=== PATIENT | female | born 1950 | race Caucasian/White ===

== ENCOUNTER 2019-12-28 14:18 | Inpatient (IN) | payer OTHER, SELFPAY ==
[~2019-12-28] VITALS: Ht 154.9 cm; Wt 112.5 kg
[2019-12-28 14:30] VITALS: BP 128/46
--- NOTE | 2019-12-28 14:30 | NUR ---
69 Y/O F [facility] C/C ABNORMAL LIFE. PER EMS H/H LOW. NO OTHER COMPLAINTS NOTED. PT PRESENTS IN NO DISTRESS, EUPNIC, VSS, AFEBRILE. PT HARD OF HEARING, A/OX4, COMMUNICATES THROUGH WRITING. PT TESTED 12/10/19 FOR COVID, NEGATIVE. PT NKA. HX,RX--SEE CHART
[2019-12-28 15:21] LABS: BASOPHILS # (AUTO) 0.1 K/uL (0.00-0.22); BASOPHILS % (AUTO) 0.8 % (0.0-2.0); EOSINOPHILS # (AUTO) 0.1 K/uL (0-0.4); EOSINOPHILS % (AUTO) 0.7 % (0.0-4.0); LYMPHOCYTES # (AUTO) 3.4 K/uL (2.5-16.5); LYMPHOCYTES % (AUTO) 44.9 % (20.5-51.1); MEAN CORPUSCULAR HEMOGLOBIN 15 pg (27-31); MEAN CORPUSCULAR HGB CONC 27 g/dL (33-37); MEAN CORPUSCULAR VOLUME 55.1 fL (80-94); MONOCYTES # (AUTO) 0.5 K/uL (0.8-1.0); MONOCYTES % (AUTO) 6.2 % (1.7-9.3); NEUTROPHILS # (AUTO) 3.6 K/uL (1.8-7.7); NEUTROPHILS % (AUTO) 47.4 % (42.2-75.2); PLATELET COUNT (AUTO) 363 K/uL (140-450); RED BLOOD CELL COUNT(AUTO) 2.79 MIL/uL (4.20-5.40); RED CELL DISTRIBUTION WIDTH 22.6 % (11.6-13.7); WHITE BLOOD COUNT (AUTO) 7.5 K/uL (4.8-10.8)
--- NOTE | 2019-12-28 15:21 | NUR ---
PT TAKEN TO RAD VIA WHEELCHAIR
[2019-12-28 15:25] LABS: HEMOGLOBIN 4.2 g/dL (12.0-16.0)
[2019-12-28 15:26] LABS: HEMATOCRIT 15.4 % (36-48)
[2019-12-28] MEDS: DEXT 5% /NACL 0.9% 1,000 ML IV SCH (15:37)
[2019-12-28] MEDS ORDERED: ONDANSETRON 4 MG/2 ML VIAL IM/IVP PRN (15:40)
[2019-12-28] MEDS ORDERED: HYDROcodone/APAP 7.5/325 MG 1 TAB PO PRN (15:40)
[2019-12-28] MEDS ORDERED: ACETAMINOPHEN 325 MG TAB PO PRN (15:40)
[2019-12-28] MEDS ORDERED: DOCUSATE SODIUM 100 MG GELCAP PO PRN (15:40)
[2019-12-28 15:48] LABS: ALBUMIN 2.7 g/dL (3.4-5.0); ANION GAP 13.1 (8-16); ASPARTATE AMINOTRANSFERASE 14 U/L (15-37); CARBON DIOXIDE 24.7 mmol/L (21-32); CHLORIDE 104 mmol/L (98-107); GLUCOSE 130 mg/dL (74-106); POTASSIUM 3.8 mmol/L (3.5-5.1); SODIUM SERUM 138 mmol/L (136-145); TOTAL BILIRUBIN 0.3 mg/dL (0.0-1.0); UREA NITROGEN, BLOOD 10 mg/dL (7-18)
[2019-12-28 15:57] LABS: PROTHROMBIN TIME 10.4 secs (10.8-13.4)
--- NOTE | 2019-12-28 16:10 | NUR ---
RAD AT BEDSIDE
--- NOTE | 2019-12-28 16:10 | NUR ---
PT RESTING IN BED, SIDE RAIL X2
[2019-12-28] MEDS ORDERED: ASPI-1884 PO (16:41)
[2019-12-28] MEDS ORDERED: AMLO5TAB PO (16:41)
[2019-12-28] MEDS ORDERED: ATOR40TA40 PO (16:41)
[2019-12-28] MEDS ORDERED: CYAN100T65 IM (16:41)
[2019-12-28] MEDS ORDERED: MAG-27 PO (16:41)
[2019-12-28] MEDS ORDERED: FAMO-90 PO (16:41)
[2019-12-28 16:46] LABS: FREE T4 (FREE THYROXINE) 1.1 ng/dL (0.76-1.46); MAGNESIUM 1.8 mg/dL (1.8-2.4); PHOSPHORUS 2.9 mg/dL (2.5-4.9); THYROID STIMULATING HORMONE 1.78 uIU/mL (0.34-3.74)
--- NOTE | 2019-12-28 17:00 | NUR ---
PT RESTING IN BED, SIDE RAIL X1
--- NOTE | 2019-12-28 18:00 | NUR ---
PT RESTING IN BED, SIDE RAIL X2
--- NOTE | 2019-12-28 18:15 | NUR ---
RECEIVED PATIENT FROM ER NURSESANDRA, FOR CONTINUITY OF CARE. PATIENT IN BED, AWAKE, HARD OF HEARING, AAOX4. NO SIGNS OF DISTRESS NOTED. ON ROOM AIR. SAFETY PRECAUTIONS IN PLACE, DROPLET ISOLATION FOR R/O COVID-19. PLAN OF CARE DISCUSSED. CALL LIGHT WITHIN REACH. WILL CONTINUE TO MONITOR.
--- NOTE | 2019-12-28 18:15 | NUR ---
Patient will be admitted to care of [facility]. Admited to TELE. Will go to room 123A. Belongings list completed. Report to JAMIE GALVAN.
--- NOTE | 2019-12-28 19:10 | NUR ---
ENDORSED TO FINISHING RANGE SUPERVISOR TRE GALVAN, FOR CONTINUITY OF CARE. Addendum: 12/28/19 at 1924 by Cecily Peñaloza RN WRONG PATIENT
--- NOTE | 2019-12-28 19:20 | NUR ---
ENDORSED TO PIPE LINER RN, KATHERINE, FOR CONTINUITY OF CARE.
[2019-12-28 19:30] VITALS: BP 139/57
--- NOTE | 2019-12-28 19:30 | NUR ---
RECEIVED ENDORSEMENT AT [facility] EFOR CONTINUITY OF CARE, PT IN STABLE CONDITION.
--- NOTE | 2019-12-28 20:00 | NUR ---
PT RECEIVED DUE MEDS PER ORDERED , SHE HAS NO C/O VOICED IV SITE INTACT AND ASYMPTOMATIC ON RIGHT HAND. PT TURNED, CHANGED AND REPOSITIONED IN BED.
[2019-12-28 20:24] LABS: BASOPHILS % (AUTO) 0.5 % (0.0-2.0); EOSINOPHILS # (AUTO) 0.1 K/uL (0-0.4); EOSINOPHILS % (AUTO) 1.3 % (0.0-4.0); LYMPHOCYTES # (AUTO) 2.5 K/uL (2.5-16.5); LYMPHOCYTES % (AUTO) 28.8 % (20.5-51.1); MEAN CORPUSCULAR HEMOGLOBIN 15 pg (27-31); MEAN CORPUSCULAR HGB CONC 28 g/dL (33-37); MEAN CORPUSCULAR VOLUME 54.7 fL (80-94); MONOCYTES # (AUTO) 0.6 K/uL (0.8-1.0); MONOCYTES % (AUTO) 7.1 % (1.7-9.3); NEUTROPHILS # (AUTO) 5.5 K/uL (1.8-7.7); NEUTROPHILS % (AUTO) 62.3 % (42.2-75.2); PLATELET COUNT (AUTO) 358 K/uL (140-450); RED BLOOD CELL COUNT(AUTO) 2.71 MIL/uL (4.20-5.40); WHITE BLOOD COUNT (AUTO) 8.8 K/uL (4.8-10.8)
[2019-12-28 20:28] LABS: HEMATOCRIT 14.8 % (36-48); HEMOGLOBIN 4.1 g/dL (12.0-16.0)
[2019-12-28] MEDS ORDERED: SODIUM FERRIC GLUCONATE 125 MG in NACL 0.9% 100 ML IV SCH (21:00)
[2019-12-28] MEDS: PANTOPRAZOLE 40 MG INJ VIAL IVP SCH (21:13)
--- NOTE | 2019-12-28 21:30 | NUR ---
PT RECEIVED ORDERED BOWEL PREP , AND CONSENT SIGNED FOR ORDERED TESTS OF CT OF ABDOMEN AND PELVIS, EDG AND COLONOSCOPY. PT REINFORCEMENT NEEDED BUT SHE DID ACKNOWLEDGE UNDERSTANDING. V/S STABLE FOR TRANSFUSION.
[2019-12-28] MEDS ORDERED: LACTULOSE 20 GM/30 ML UDC PO SCH (21:45)
[2019-12-28] MEDS ORDERED: MAGNESIUM CITRATE 300 ML BTL PO SCH (21:45)
--- NOTE | 2019-12-28 22:00 | NUR ---
BLOOD TRANSFUSION STARTED , NO ADVERSE REACTIONS NOTED.
[2019-12-28] MEDS ORDERED: BOWEL EVACUANT DRINK 4,000 ML PDS PO SCH (22:04)
--- NOTE | 2019-12-29 00:30 | NUR ---
1ST UNIT OF RPBC GIVEN TO PT NO ADVERSE REACTIONS NOTED.
[2019-12-29] MEDS ORDERED: SODIUM FERRIC GLUCONATE 12.5 MG/ML AMP IV ONE (00:43)
--- NOTE | 2019-12-29 01:00 | NUR ---
PT TURNED, CHANGED AND REPOSITIONED IN BED. ALL CONSENTS OBTAINED FOR ORDERED TESTS.
--- NOTE | 2019-12-29 05:45 | NUR ---
2ND UNIT OF PRBC STARTED, PT HAS NO S/S OF BLEEDING OR BRUISING.
--- NOTE | 2019-12-29 06:30 | NUR ---
BLOOD TRANSFUSION FOR 2ND UNIT IN PROGRESS, WILL CONTINUE TO MONITOR AND ENDORSE CARE TO AM SHIFT.
--- NOTE | 2019-12-29 07:25 | NUR ---
RECEIVED PT FROM PROJECT SAFETY MANAGER NURSE. PT IS CURRENTLY SLEEPING IN BED WITH NO SIGNS OF DISTRESS AT THIS TIME. RESPIRATIONS ARE EVEN AND UNLABORED ON ROOM AIR WITH NO SIGNS OF DISTRESS. SKIN IS INTACT WITH IV ASYMPTOMATIC PATENT AND INFUSING 2ND UNIT PRBCS PER ORDER. BED IS IN LOW, SEMI-FOWLERS POSITION, CALL LIGHT WITHIN REACH, SAFETY MEASURES IN PLACE AND WILL CONTINUE TO MONITOR.
[2019-12-29] MEDS ORDERED: SENNA 8.6 MG TAB PO SCH (07:45)
[2019-12-29 08:00] VITALS: BP 139/67
[2019-12-29] MEDS: DEXT 5% /NACL 0.9% 1,000 ML IV SCH ×2 (08:00→11:37)
--- NOTE | 2019-12-29 08:05 | NUR ---
BLOOD TRANSFUSION HAS BEEN COMPLETED AND VITAL SIGNS ARE WITHIN NORMAL RANGE. PATIENT HAD NO TRANSFUSION REACTION. SAFETY MEASURES IN PLACE AND WILL CONTINUE TO MONITOR.
[2019-12-29] MEDS: PANTOPRAZOLE 40 MG INJ VIAL IVP SCH (08:33)
--- NOTE | 2019-12-29 08:35 | NUR ---
ADMINISTERED MEDICATIONS PER ORDER AND TOLERATED WELL. PT IS CURRENTLY SITTING IN BED WITH NO SIGNS OF DISTRESS. SAFETY MEASURES IN PLACE AND WILL CONTINUE TO MONITOR.
--- NOTE | 2019-12-29 09:42 | NUR ---
PATIENT HAS BEEN SCREENED AND CATEGORIZED MODERATE NUTRITION RISK. PATIENT WILL BE SEEN WITHIN 3-5 DAYS OF ADMISSION. 12/31/19 01/02/[address]
--- NOTE | 2019-12-29 09:50 | NUR ---
COMPUTER SERVICE TECHNICIAN NOTE: Patient's Orientation Person Situation Place Time Information Provided By ELMA Rincon [facility] [place] [place] Comments SW WAS UNABLE TO MEET PATIENT AT BEDSIDE DUE TO MEDICAL CONDITION. PATIENT COMMUNICATES THROUGH WRITING Corporate Ethics Officer, Realtionship and Phone Number GORDO ORTIZ DAUGHTER [phone] Healthcare Power of Supply Analyst No Does Patient Have a POLST No Identifying Problems No Social Work Triggers Is A Social Work Consult Needed No Mandate Report Filed No Explanation Of Identifying Problems PATIENT IS A 69-YEAR-OLD FEMALE ADMITTED FOR SEVERE ANEMIA. PATIENT HAS PMHX OF HTN, CAD, HLD, ARTHRITIS, GERD, AND DEAFNESS. Admitted From [facility] Facility Penitentiary Facility [facility] - [phone] Pre-Admission Level Of Functioning Status Total Care Prior Resources/Services Used In Last 12 Months SNF Nursing Home Care Prior [facility] Bed Home Support No Caregiver Issues Financial Issues No Known Financial Issue Factors/Needs SNF/NH Placement Explanation And Or Other Factors Affecting/Possible DC Needs PATIENT IS SHELTER AND ON A BED HOLD. Discharge Plan Comments TENTATIVE DISCHARGE PLAN IS FOR PATIENT TO RETURN TO [facility]. DC Plan Status Initiated
[2019-12-29] MEDS: ASCORBIC ACID 500 MG TAB PO SCH (10:20)
--- NOTE | 2019-12-29 10:36 | NUR ---
LEFT FOREARM 20GAUGE HAS BEEN PLACED FOR CT OF ABDOMEN AND PELVIS WITH CONTRAST. RADIOLOGY HAS BEEN NOTIFIED. PT IS CURRENTLY SITTING IN BED WATCHING TV
[2019-12-29 11:09] LABS: HEMATOCRIT 22.8 % (36-48); MEAN CORPUSCULAR HEMOGLOBIN 18 pg (27-31); MEAN CORPUSCULAR HGB CONC 29 g/dL (33-37); MEAN CORPUSCULAR VOLUME 61.6 fL (80-94); PLATELET COUNT (AUTO) 371 K/uL (140-450); RED BLOOD CELL COUNT(AUTO) 3.71 MIL/uL (4.20-5.40); WHITE BLOOD COUNT (AUTO) 7.6 K/uL (4.8-10.8)
[2019-12-29 11:21] LABS: HEMOGLOBIN 6.7 g/dL (12.0-16.0)
[2019-12-29 11:24] LABS: MONOCYTES % (MANUAL) 6 % (5-12)
[2019-12-29 11:25] LABS: LYMPHOCYTES % (MANUAL) 39 % (20-46)
[2019-12-29 12:00] VITALS: BP 143/54
[2019-12-29 12:16] LABS: T4 (THYROXINE) 6.4 ug/dL (4.5-12.0)
--- NOTE | 2019-12-29 12:19 | NUR ---
ADMINISTERED MEDICATIONS PER DR. MARAVILLA ORDERS. SAFETY MEASURES IN PLACE AND WILL CONTINUE TO MONITOR.
[2019-12-29] MEDS ORDERED: MAGNESIUM CITRATE 300 ML BTL PO SCH (12:30)
--- NOTE | 2019-12-29 12:49 | NUR ---
PT HAS JUST BEEN CHANGED. PT HAD A LARGE BOWEL MOVEMENT. PT TOLERATED CHANGE WELL. SAFETY MEASURES IN PLACE AND WILL CONTINUE TO MONITOR.
--- NOTE | 2019-12-29 12:59 | NUR ---
DC PLANNIN YRS OLD FEMALE PATIENT WAS ADMITTED FROM [facility] WITH A DX OF SEVER ANEMIA 4.8/14.8 PT HAS A HX OF HTN,CAD, HLD,GERD . PT IS DEAF. 2 UNITS PRBC GIVEN H/H WENT UP TO 6.7/ 22.8. CXR SHOWED MILD PULMONARY VASCULAR CONGESTION AND INTERSTITIAL EDEMA. COVID TEST PENDING CT ABDOMEN/PELVIS PENDING. CONSULTED WITH GI DR MARAVILLA. DC PLAN TO GO BACK TO [facility] WHEN STABLE CM TO FOLLOW. Addendum: 12/30/19 at 1550 by Savannah Devries DC PLANNING: DR MARAVILLA PERFORMED EGD AND COLONOSCOPY AWAITING FOR RESULT .CONTINUE CURRENT THERAPY. DC PLAN TO GO BACK TO [facility] WHEN STABLE. CM TO FOLLOW Addendum: 12/31/19 at 1119 by Bharti White CM CONTACTED PATIENT'S DAUGHTER GORDO ORTIZ AT [phone] TO DISCUSS DC PLANNING AND IMM LETTER, NO ANSWER. LEFT MESSAGE. Addendum: 12/31/19 at 1222 by Bharti White LATE ENTRY: RECEIVED AN ORDER TO DC BACK TO [facility] UNDER DR. NARANJO FOR IV ROCEPHIN X 3 DAYS. CLINICALS AND ORDER SENT TO [facility]. CONTACTED [facility], ABLE TO SPEAK TO MONICA. SHE STATED TO CONTACT KENA FROM ADMISSIONS [phone]. CONTACTED THE PROVIDED NUMBER, PER KENA WILL CALL ME BACK WITH THE ROOM NUMBER AND TRANSPORTATION INFO. 1142: PER KENA, PATIENT WILL GO TO ROOM 104A UNDER DR. NARANJO AND CLIENT LEADER WITH [facility] IS AT 1900. CHARGE NURSE AND DR. PEDROZA MADE AWARE.
--- NOTE | 2019-12-29 14:00 | NUR ---
PT IS GOING TO GO TO OR FOR AN EGD. PT IS CURRENTLY AWAKE WITH NO SIGNS OF DISTRESS.
[2019-12-29] MEDS ORDERED: MIDAZOLAM 2 MG/2 ML VIAL ONE ×2 (14:09)
[2019-12-29] MEDS ORDERED: diphenhydrAMINE 50 MG/ML VIAL ONE (14:09)
[2019-12-29] MEDS ORDERED: fentaNYL citrate 0.05 MG/ML VIAL ONE ×2 (14:10)
[2019-12-29] MEDS ORDERED: FENTANYL C 0.075 MG/HR PATCH TD SCH (14:35)
[2019-12-29] MEDS ORDERED: MIDAZOLAM 2 MG/2 ML VIAL IVP ONE (14:35)
[2019-12-29] MEDS ORDERED: METOCLOPRAMIDE 10 MG/2 ML INJ VIAL IVP PRN (14:35)
[2019-12-29] MEDS ORDERED: METOCLOPRAMIDE 10 MG/2 ML INJ VIAL IVP ONE (14:35)
--- NOTE | 2019-12-29 15:00 | NUR ---
PT HAS RETURNED FROM EGD. PT IS CURRENTLY ALERT AND AWAKE WITH NO SIGNS OF DISTRESS. SAFETY MEASURES IN PLACE AND WILL CONTINUE TO MONITOR.
[2019-12-29] MEDS ORDERED: fentaNYL citrate 0.05 MG/ML VIAL IVP ONE (15:15)
[2019-12-29 16:00] VITALS: BP 120/82
[2019-12-29] MEDS: LACTULOSE 20 GM/30 ML UDC PO SCH ×2 (16:20→21:00)
[2019-12-29] MEDS: SENNA 8.6 MG TAB PO SCH (16:21)
[2019-12-29] MEDS: SODIUM FERRIC GLUCONATE 125 MG in NACL 0.9% 100 ML IV SCH (16:35)
--- NOTE | 2019-12-29 16:44 | NUR ---
ADMINISTERED MEDICATIONS PER ORDER AND TOLERATED WELL. PT HAD BM AND HAS BEEN CHANGED, SAFETY MEASURES IN PLACE AND WILL CONTINUE TO MONITOR.
[2019-12-29 17:40] LABS: TRANSFERRIN 371 mg/dL (200 - 370)
[2019-12-29 17:42] LABS: FERRITIN 4 ng/mL (15 - 150)
--- NOTE | 2019-12-29 18:55 | NUR ---
GAVE REPORT TO HARPOON ENGAGEMENT PLANNING OPERATOR NURSE FOR CONTINUITY OF CARE. PT IS CURRENTLY SITTING IN BED WITH NO SIGNS OF DISTRESS.
--- NOTE | 2019-12-29 19:15 | NUR ---
RECEIVED BEDSIDE REPORT FROM DAY SHIFT NURSE. PT IS AWAKE AND ALERT. A&O X 3. PT IS ON RA AND BREATHING IS EVEN AND UNLABORED. SKIN IS WARM, DRY, AND INTACT. PT IS AWAITING COVID 19 TEST RESULTS WHICH ARE PENDING AT THE MOMENT. IV IS IN THE RIGHT ARM 22 GAUGE AND LEFT FOREARM 20 GAUGE. IV FLUIDS ARE INFUSING D5NS AT 40 ML PER HOUR PER DOCTORS ORDER. PT IS SCHEDULED TO RECEIVE A COLONOSCOPY TOMORROW MORNING SO BOWEL PREP KIT WILL BE ADMINISTERED. BED IS IN THE LOWEST POSITION AND CALL LIGHT IS WITHIN REACH. DISCUSSED PLAN OF CARE AND WILL CONTINUE WITH CURRENT POC.
[2019-12-29 20:00] VITALS: BP 136/66
[2019-12-29] MEDS: POLYETHYLENE GLYCOL 17 GM/PKT PO SCH (21:00)
[2019-12-29] MEDS: SUPREP BOWEL PREP KIT 354 ML SOLN.RECON PO SCH (21:00)
--- NOTE | 2019-12-29 21:00 | NUR ---
PT IS AWAKE AND ALERT. SHE IS LAYING IN SEMI FOWLERS POSITION AND APPEARS TO BE RESTING. PT IS CALM AND STABLE AT THIS TIME. BOWEL PREP WAS PROVIDED ALONG WITH LACTULOSE AND MIRALAX. MEDICATION EDUCATION WAS GIVEN AND PT VERBALIZED UNDERSTANDING. WILL CONTINUE TO MONITOR.
--- NOTE | 2019-12-29 23:00 | NUR ---
PT IS ASLEEP AND RESTING IN SEMI FOWLERS POSITION. CHEST RISE IS SYMMETRICAL AND RESPIRATIONS ARE UNLABORED. NO DISTRESS NOTED AND NO APPARENT SIGNS OF PAIN. WILL CONTINUE TO MONITOR.
[2019-12-30] VITALS: BP 136/66
--- NOTE | 2019-12-30 00:15 | NUR ---
CALLED DR. NARANJO TO REQUEST A STRAIGHT CATHETER ORDER FOR A URINE ANALYSIS AND URINE DRUG SCREEN. THE ORDER IS NOW IN PROCESS.
--- NOTE | 2019-12-30 01:00 | NUR ---
PT HAD A BOWEL MOVEMENT AND LINENS WERE CHANGED. PT WAS REPOSITIONED AND INFORMED ABOUT THE PROCEDURE TO OBTAIN A URINE SAMPLE. PT WAS INFORMED THAT SHE WOULD HAVE A STRAIGHT CATHETER TO OBTAIN THE SAMPLE AND PT VERBALIZED UNDERSTANDING. PT TOLERATED THE PROCEDURE WELL AND THE SAMPLE IS SENT TO THE LAB. PT IS NOW RESTING AND WILL CONTINUE TO MONITOR.
--- NOTE | 2019-12-30 01:05 | NUR ---
PATIENT'S BOWEL MOVEMENT WERE WATERY, PATIENT TAKING BOWEL PREP FOR THE COLONOSCOPY GEOVANNY AT 11AM; COULD NOT GET A SAMPLE OF THE OCCULT BLOOD; WILL TRY AGAIN LATER
--- NOTE | 2019-12-30 01:28 | NUR ---
INFORMED DR. NARANJO ABOUT THE WHIT[place] DISCHARGE WHEN TAKING HER UA AND UDS THROUGH [facility], SAID TO WAIT FOR THE RESULT OF THE UA 1ST BEFORE ORDERING ANYTHING FOR FUNGAL INFECTION.
--- NOTE | 2019-12-30 02:00 | NUR ---
INFORMED DR. NARANJO THAT THE PT GOT THE RESULTS FOR COVID 19 AND THEY WERE NEGATIVE. DOCTOR SAID SHE WOULD ORDER ANOTHER COVID 19 TEST IN ORDER FOR DISCHARGE TO [facility]. Addendum: 12/30/19 at 0234 by Amy Klein RN [facility]
--- NOTE | 2019-12-30 02:18 | NUR ---
INFORMED DR. NARANJO THAT THE 1ST COVID TEST CAME OUT NEGATIVE; DR. BARDALES ORDERED A 2ND COVID TEST
--- NOTE | 2019-12-30 02:30 | NUR ---
TAKEN TO CT SCAN FOR CT/ ABDOMEN AND PELVIS WITH OR WITHOUT CONTRAST. THE OCCUPATIONAL MEDICINE SPECIALIST RANDY KNOWS THAT PT IS PIU,( BUT NEGATIVE FOR 1ST TEST, STILL AWAITING 2ND COVID TEST TO COME OUT SHE WILL BE SWABBED TODAY 12/30/2019 FOR THE 2ND COVID SWAB)
[2019-12-30 03:39] LABS: APPEARANCE,URINE CLOUDY (CLEAR); BILIRUBIN,URINE NEGATIVE (NEGATIVE); BLOOD, URINE NEGATIVE (NEGATIVE); COLOR,URINE YELLOW (YELLOW); LEUKOCYTE ESTERASE ,URINE 1+ (NEGATIVE); NITRITE, URINE NEGATIVE (NEGATIVE); PH,URINE >=9.0 (5.0-9.0); UGLUCOSE NEGATIVE (NEGATIVE)
[2019-12-30 04:00] VITALS: BP 141/64
[2019-12-30 04:12] LABS: RBC,URINE 0-5 /HPF (0-5)
[2019-12-30 04:13] LABS: BARBITURATE, URINE NEGATIVE ng/ml (NEG <=200); BENZODIAZEPINE, URINE NEGATIVE ng/mL (NEG <=200); CANNABINOID, URINE NEGATIVE ng/mL (NEG <=50); COCAINE, URINE NEGATIVE ng/mL (NEG <=300); PHENCYCLIDINE SCREEN,URINE NEGATIVE ng/mL (NEG <=25)
[2019-12-30 04:14] LABS: OPIATE, URINE POSITIVE ng/mL (NEG <=2000)
[2019-12-30] MEDS ORDERED: Z-GUARD PASTE TP ONE (04:46)
--- NOTE | 2019-12-30 04:50 | NUR ---
PT HAD A BOWEL MOVEMENT. SOILED LINENS WERE CHANGED AND Z GUARD WAS APPLIED TO INCONTINENT DERMATITIS ON LEFT INNER THIGH PER ORDER. PT IS NOW RESTING AND NO SIGNS OF DISTRESS NOTED.
[2019-12-30 06:45] LABS: ANION GAP 16.2 (8-16); CARBON DIOXIDE 22.2 mmol/L (21-32); CHLORIDE 108 mmol/L (98-107); CREATININE 0.8 mg/dL (0.6-1.3); GLUCOSE 87 mg/dL (74-106); POTASSIUM 3.4 mmol/L (3.5-5.1); SODIUM SERUM 143 mmol/L (136-145); UREA NITROGEN, BLOOD 3 mg/dL (7-18)
[2019-12-30 06:49] LABS: MAGNESIUM 2.2 mg/dL (1.8-2.4)
--- NOTE | 2019-12-30 07:00 | NUR ---
TRIED TO CALL DAUGHTER GANESH TO TELL HER THAT WE HAVE INFORMED THE DOCTOR THAT SHE WANTS AN UPDATE AND LEFT HER NO. TO THEM. PLS. CALL US ALSO IF YOU DON'T HEAR FROM THE DR, Addendum: 12/30/19 at 0730 by Amy Klein RN WRONG PATIENT DELETE NOTE
[2019-12-30 07:04] LABS: BASOPHILS # (AUTO) 0.1 K/uL (0.00-0.22); BASOPHILS % (AUTO) 0.9 % (0.0-2.0); EOSINOPHILS # (AUTO) 0.1 K/uL (0-0.4); EOSINOPHILS % (AUTO) 1.1 % (0.0-4.0); HEMATOCRIT 22.2 % (36-48); LYMPHOCYTES # (AUTO) 2.7 K/uL (2.5-16.5); LYMPHOCYTES % (AUTO) 27.6 % (20.5-51.1); MEAN CORPUSCULAR HEMOGLOBIN 18 pg (27-31); MEAN CORPUSCULAR HGB CONC 29 g/dL (33-37); MEAN CORPUSCULAR VOLUME 62.4 fL (80-94); MONOCYTES # (AUTO) 0.6 K/uL (0.8-1.0); MONOCYTES % (AUTO) 5.9 % (1.7-9.3); NEUTROPHILS # (AUTO) 6.3 K/uL (1.8-7.7); NEUTROPHILS % (AUTO) 64.5 % (42.2-75.2); PLATELET COUNT (AUTO) 370 K/uL (140-450); RED BLOOD CELL COUNT(AUTO) 3.55 MIL/uL (4.20-5.40); RED CELL DISTRIBUTION WIDTH 30.6 % (11.6-13.7); WHITE BLOOD COUNT (AUTO) 9.7 K/uL (4.8-10.8)
--- NOTE | 2019-12-30 07:05 | NUR ---
PT AWAKE, O X 3 , PT BOWEL PREP FOR COLONOSCOPY, WITH SMALL/ MINIMAL BROWN PARTICLES. WILL ENDORSE TO NEXT SHIFT FOR CONTINUITY OF CARE.
[2019-12-30 08:00] VITALS: BP 142/67
[2019-12-30] MEDS ORDERED: FERROUS SULFATE 325 MG TABEC PO SCH (08:00)
--- NOTE | 2019-12-30 08:00 | NUR ---
RECEIVED REPORT FROM PM RN. PT IS RESTING IN BED. RESPIRATION ARE EVEN AND UNLABORED. NO SIGNS OF DISTRESS. PT IS HARD OF HEARING. USE PAPER AT BEDSIDE TO COMMUNICATE WITH PT. PT IS TAKING BOWEL PREP FOR SCHEDULED COLONOSCOPY. WILL CONTINUE TO MONITOR.
[2019-12-30] MEDS: DEXT 5% /NACL 0.9% 1,000 ML IV SCH ×2 (08:04→22:42)
[2019-12-30 08:08] LABS: HEMOGLOBIN 6.5 g/dL (12.0-16.0)
[2019-12-30] MEDS: ASCORBIC ACID 500 MG TAB PO SCH (09:00)
[2019-12-30] MEDS: POLYETHYLENE GLYCOL 17 GM/PKT PO SCH ×2 (09:00→21:00)
[2019-12-30] MEDS: SENNA 8.6 MG TAB PO SCH ×2 (09:00→13:00)
[2019-12-30] MEDS: ATORVASTATIN 20 MG TAB PO SCH (09:00)
[2019-12-30] MEDS: LACTULOSE 20 GM/30 ML UDC PO SCH ×2 (09:10→13:00)
[2019-12-30] MEDS: POTASSIUM CHLORIDE 20% 40 MEQ/15 ML UDC GT SCH (09:11)
[2019-12-30] MEDS: PANTOPRAZOLE 40 MG INJ VIAL IVP SCH (09:11)
[2019-12-30] MEDS: SUPREP BOWEL PREP KIT 354 ML SOLN.RECON PO SCH (09:36)
[2019-12-30] MEDS: SODIUM FERRIC GLUCONATE 125 MG in NACL 0.9% 100 ML IV SCH ×3 (10:10→17:00)
[2019-12-30] MEDS ORDERED: MIDAZOLAM 2 MG/2 ML VIAL ONE (11:07)
[2019-12-30] MEDS ORDERED: fentaNYL citrate 0.05 MG/ML VIAL ONE (11:07)
[2019-12-30] MEDS ORDERED: diphenhydrAMINE 50 MG/ML VIAL ONE (11:07)
--- NOTE | 2019-12-30 11:10 | NUR ---
Pt left unit via hospital bed for colonoscopy, accompanied by 2 OR nurses.
[2019-12-30] MEDS ORDERED: ACETAMINOPHEN 325 MG TAB PO SCH (12:00)
[2019-12-30] MEDS ORDERED: FUROSEMIDE 20 MG TAB PO SCH ×2 (12:00→16:00)
--- NOTE | 2019-12-30 13:15 | NUR ---
Pt came back from colonoscopy via hospital bed. Pt aaox4, no signs of distress. Report received from PACU nurse Mai.
[2019-12-30] MEDS ORDERED: fentaNYL citrate 0.05 MG/ML VIAL IVP ONE (13:55)
[2019-12-30] MEDS ORDERED: MIDAZOLAM 2 MG/2 ML VIAL IVP ONE (13:55)
[2019-12-30] MEDS: ACETAMINOPHEN 325 MG TAB PO SCH ×3 (14:45→22:30)
--- NOTE | 2019-12-30 15:00 | NUR ---
Pt's left forearm IV infiltrated. Right hand IV leaking. Attempted IV insertion but unsuccessful. Charge nurse notified and will attempt insertion.
[2019-12-30 16:00] VITALS: BP 142/67
--- NOTE | 2019-12-30 16:00 | NUR ---
SUPERVISOR PREPRESS SUCCESSFULLY PLACED 22G IV IN RT WRIST. PT IS RESTING IN BED, EYES OPEN, AWAKE. NO SIGNS OF DISTRESS. NO COMPLAINTS OF PAIN. WILL CONTINUE TO MONITOR.
--- NOTE | 2019-12-30 16:40 | NUR ---
1unit PRBC transfusion initiated at this time. Pt resting in bed, awake, no signs of distress. RN remains at bedside for continuous monitoring.
--- NOTE | 2019-12-30 18:10 | NUR ---
PT EATING DINNER IN BED. RBC RUNNING AT 100ML/HR. NO COMPLAINTS OF SOB, FEVER, OR ITCHING. VS COLLECTED. NEXT SET OF VITALS AT 1910. WILL CONTINUE TO MONITOR.
--- NOTE | 2019-12-30 19:15 | NUR ---
RECEIVED BEDSIDE REPORT FROM DAY SHIFT NURSE. PATIENT IS AWAKE, ALERT, AND COOPERATIVE. RESPIRATION EVEN UNLABORED ON ROOM AIR. DISTRESS NOTED. BLOOD TRANSFUSION INFUSING. NO BLOOD TRANSFUSION REACTION NOTED. SKIN IS WARM AND DRY. IV PATENT AND INTACT. PLAN OF CARE WAS DISCUSSED. ALL SAFETY MEASURES IN PLACE. BED IS AT LOW POSITION. CALL LIGHT WITHIN REACH. WILL CONTINUE TO MONITOR.
--- NOTE | 2019-12-30 19:20 | NUR ---
Report given to pm nurse Sutherland. Pt with ongoing blood transfusion.
--- NOTE | 2019-12-30 20:05 | NUR ---
INITIAL ASSESSMENT DONE. IV INFILTRATED. CANNULA TIP INTACT. NO ACTIVE BLEEDING NOTED. INSERTED A NEW ONE ON LEFT FA 22G. WILL CONTINUE TO MONITOR.
--- NOTE | 2019-12-30 20:10 | NUR ---
BLOOD TRANSFUSION ENDED. NO REACTION NOTED. WILL CONTINUE TO MONITOR.
--- NOTE | 2019-12-30 20:45 | NUR ---
CALLED LAB FOR 2ND UNIT BAG OF BLOOD. BLOOD IS NOT READY. WILL FOLLOW UP AGAIN LATER
--- NOTE | 2019-12-30 21:04 | NUR ---
ALL SCHEDULED MEDS WERE GIVEN. ADMINISTERED LASIX PER ORDER. ORDER INSTRUCTION TO GIVE LASIX AFTER EACH UNIT OF BLOOD TRANSFUSED. WILL CONTINUE TO MONITOR.
--- NOTE | 2019-12-30 23:03 | NUR ---
CHECKED PATIENT. PATIENT SLEEPING RESPIRATION EVEN UNLABORED ON ROOM AIR. NO DISTRESS NOTED. WILL CONTINUE TO MONITOR.
[2019-12-31] VITALS: BP 123/53
--- NOTE | 2019-12-31 00:52 | NUR ---
ENDORSED PATIENT TO YAEL FOR CONTINUITY OF CARE. PATIENT IN STABLE CONDITION.
--- NOTE | 2019-12-31 00:53 | NUR ---
RECEIVED BEDSIDE REPORT FROM STEFAN GALVAN. PT IS SLEEPING COMFORTABLY IN BED WITH EYES CLOSED. CHEST RISE AND FALL NOTED. RESPIRATIONS ARE EQUAL AND UNLABORED ON ROOM AIR. SKIN INTACT REDNESS TO GRACE BREAST FOLD, INCONTINENT DERMATITIS. IV ON LFA 22G. ONE MORE UNIT OF PRBC PENDING. PT RECEIVED 3 UNITS OF PRBC. LABS TO BE DRAWN IN AM. SAFETY MEASURES ARE IN PLACE. CALL LIGHT IS WITHIN REACH.
--- NOTE | 2019-12-31 02:30 | NUR ---
MADE ROUNDS. PT IS LAYING COMFORTABLY IN BED WITH WATCHING TV. GAVE WATER PER REQUEST. ALL NEEDS MET. CALL LIGHT IS WITHIN REACH. WILL CONTINUE TO MONITOR.
--- NOTE | 2019-12-31 04:27 | NUR ---
MADE ROUND ON PATIENT. VITALS WITHIN NORMAL LIMITS. NO SIGNS OF DISTRESS NOTED. PATIENT ASKED FOR A BLANKET. BLANKET WAS PROVIDED. CALL LIGHT IS WITHIN REACH. WILL CONTINUE TO MONITOR.
--- NOTE | 2019-12-31 06:40 | NUR ---
STARTED SECOND UNIT OF BLOOD AT THIS TIME. PRE TRANSFUSION VS: 98.6 71HR 128/60 RR 18 DENIES PAIN.
[2019-12-31 06:44] LABS: BASOPHILS # (AUTO) 0.3 K/uL (0.00-0.22); BASOPHILS % (AUTO) 2.9 % (0.0-2.0); EOSINOPHILS # (AUTO) 0.3 K/uL (0-0.4); EOSINOPHILS % (AUTO) 3.7 % (0.0-4.0); HEMATOCRIT 23.6 % (36-48); LYMPHOCYTES # (AUTO) 1.8 K/uL (2.5-16.5); LYMPHOCYTES % (AUTO) 20.8 % (20.5-51.1); MEAN CORPUSCULAR HEMOGLOBIN 19 pg (27-31); MEAN CORPUSCULAR HGB CONC 29 g/dL (33-37); MEAN CORPUSCULAR VOLUME 64.6 fL (80-94); MONOCYTES # (AUTO) 0.5 K/uL (0.8-1.0); MONOCYTES % (AUTO) 5.5 % (1.7-9.3); NEUTROPHILS % (AUTO) 67.1 % (42.2-75.2); PLATELET COUNT (AUTO) 339 K/uL (140-450); RED BLOOD CELL COUNT(AUTO) 3.65 MIL/uL (4.20-5.40); RED CELL DISTRIBUTION WIDTH 32.3 % (11.6-13.7); WHITE BLOOD COUNT (AUTO) 8.9 K/uL (4.8-10.8)
[2019-12-31] MEDS: ACETAMINOPHEN 325 MG TAB PO SCH ×3 (06:50→16:00)
[2019-12-31 06:56] LABS: HEMOGLOBIN 6.8 g/dL (12.0-16.0)
[2019-12-31 06:57] LABS: MAGNESIUM 1.9 mg/dL (1.8-2.4); PHOSPHORUS 2.5 mg/dL (2.5-4.9)
--- NOTE | 2019-12-31 07:20 | NUR ---
RECEIVED PATIENT FROM DATABASE DESIGN ANALYST NURSE. PATIENT IS CURRENTLY RECEIVING BLOOD TRANSFUSION AND DOES NOT SHOW ANY SIGNS OF TRANSFUSION REACTION. RESPIRATIONS ARE EVEN AN UNLABORED ON ROOM AIR WITH NO DIFFICULTIES BREATHING. SKIN IS INTACT WITH IV ASYMPTOMATIC PATENT AND INFUSING PER ORDERS. SAFETY MEASURES IN PLACE, CALL LIGHT WITHIN REACH AND WILL CONTINUE TO MONITOR.
--- NOTE | 2019-12-31 07:27 | NUR ---
PATIENT IS IN STABLE CONDITION. NO SIGNS OF DISTRESS. ENDORSED CONTINUITY OF CARE TO AM NURSE.
[2019-12-31 08:00] VITALS: BP 125/53
[2019-12-31 08:09] LABS: ANION GAP 15.6 (8-16); CARBON DIOXIDE 21.5 mmol/L (21-32); CHLORIDE 108 mmol/L (98-107); CREATININE 0.7 mg/dL (0.6-1.3); GLUCOSE 79 mg/dL (74-106); POTASSIUM 3.1 mmol/L (3.5-5.1); SODIUM SERUM 142 mmol/L (136-145); UREA NITROGEN, BLOOD 3 mg/dL (7-18)
[2019-12-31] MEDS ORDERED: FERR325E14 PO (09:31)
[2019-12-31] MEDS ORDERED: PANT40EC PO (09:31)
[2019-12-31] MEDS ORDERED: VITC500 PO (09:31)
[2019-12-31] MEDS ORDERED: METO-485 PO (09:31)
[2019-12-31] MEDS: ATORVASTATIN 20 MG TAB PO SCH (09:36)
[2019-12-31] MEDS: ASCORBIC ACID 500 MG TAB PO SCH (09:36)
[2019-12-31] MEDS: POLYETHYLENE GLYCOL 17 GM/PKT PO SCH (09:36)
[2019-12-31] MEDS: PANTOPRAZOLE 40 MG INJ VIAL IVP SCH (09:36)
[2019-12-31] MEDS: POTASSIUM CHLORIDE 20% 40 MEQ/15 ML UDC GT SCH (09:37)
--- NOTE | 2019-12-31 09:44 | NUR ---
ADMINISTERED MEDICATIONS PER ORDER AND TOLERATED WELL. PATIENT IS CURRENTLY SITTING IN BED STILL RECEIVING BLOOD TRANSFUSION WITH NO SIGNS OF TRANSFUSION REACTION. PATIENT HAS NO COMPLAINTS OF PAIN AT THIS TIME. SAFETY MEASURES IN PLACE AND WILL CONTINUE TO MONITOR.
--- NOTE | 2019-12-31 10:25 | NUR ---
BLOOD TRANSFUSION HAS ENDED AT THIS TIME. PATIENT IS CURRENTLY SITTING IN BED WITH NO SIGNS OF DISTRESS. VITAL SIGNS ARE WITHIN NORMAL RANGE AND PATIENT DID NOT SUFFER ANY TRANSFUSION REACTION. SAFETY MEASURES IN PLACE AND WILL CONTINUE TO MONITOR.
[2019-12-31] MEDS ORDERED: CEFT1SOL1 IV (10:42)
--- NOTE | 2019-12-31 10:50 | NUR ---
PHYSICAL THERAPY CAME TO WORK WITH PATIENT. PATIENT TOLERATED OKAY. PATIENT ATTEMPTED TO STAND BUT SAID SHE IS TOO WEAK. NO OTHER COMPLAINTS OF PAIN AT THIS TIME. SAFETY MEASURES IN PLACE AND WILL CONTINUE TO MONITOR.
[2019-12-31] MEDS: SODIUM FERRIC GLUCONATE 125 MG in NACL 0.9% 100 ML IV SCH ×3 (11:00→17:00)
[2019-12-31] MEDS ORDERED: POTASSIUM CHLORIDE 10 MEQ TABER PO SCH (11:00)
[2019-12-31] MEDS ORDERED: LACT10SO40 PO (11:12)
--- NOTE | 2019-12-31 11:52 | NUR ---
ADMINISTERED MEDICATIONS PER ORDER AND TOLERATED WELL. PATIENT IS CURRENTLY ALERT AND AWAKE AND WATCHING TV IN BED. SAFETY MEASURES IN PLACE AND WILL CONTINUE TO MONITOR PLAN OF CARE.
--- NOTE | 2019-12-31 12:46 | NUR ---
ADMINISTER MEDICATIONS PER ORDER AND TOLERATED WELL. PATIENT RECEIVED BLOOD TRANSFUSION THIS MORNING THEREFORE TYLENOL AND BENADRYL DO NOT NEED TO BE ADMINISTERED. SAFETY MEASURES IN PLACE AND WILL CONTINUE TO MONITOR.
[2019-12-31 13:48] LABS: BASOPHILS # (AUTO) 0.1 K/uL (0.00-0.22); BASOPHILS % (AUTO) 0.7 % (0.0-2.0); EOSINOPHILS # (AUTO) 0.2 K/uL (0-0.4); EOSINOPHILS % (AUTO) 1.8 % (0.0-4.0); HEMATOCRIT 27.8 % (36-48); HEMOGLOBIN 8.3 g/dL (12.0-16.0); LYMPHOCYTES # (AUTO) 2.6 K/uL (2.5-16.5); LYMPHOCYTES % (AUTO) 26.4 % (20.5-51.1); MEAN CORPUSCULAR HEMOGLOBIN 20 pg (27-31); MEAN CORPUSCULAR HGB CONC 30 g/dL (33-37); MEAN CORPUSCULAR VOLUME 66.6 fL (80-94); MONOCYTES # (AUTO) 0.4 K/uL (0.8-1.0); MONOCYTES % (AUTO) 4.5 % (1.7-9.3); NEUTROPHILS # (AUTO) 6.7 K/uL (1.8-7.7); NEUTROPHILS % (AUTO) 66.6 % (42.2-75.2); PLATELET COUNT (AUTO) 334 K/uL (140-450); RED BLOOD CELL COUNT(AUTO) 4.17 MIL/uL (4.20-5.40); RED CELL DISTRIBUTION WIDTH 33.2 % (11.6-13.7)
--- NOTE | 2019-12-31 14:30 | NUR ---
ADMINISTERED MEDICATIONS PER ORDER AND TOLERATED WELL. PATIENT IS CURRENTLY SITTING UP IN BED WATCHING TV WITH NO SIGNS OF DISTRESS AT THIS TIME. SAFETY MEASURES IN PLACE AND WILL CONTINUE TO MONITOR.
[2019-12-31 16:00] VITALS: BP 152/66
[2019-12-31] MEDS ORDERED: FUROSEMIDE 20 MG TAB PO SCH (16:00)
--- NOTE | 2019-12-31 16:03 | NUR ---
GAVE REPORT TO LAURO OF [facility] REGARDING PATIENT DISCHARGE AND PLAN OF CARE OF IV ANTIBIOTICS ROCEPHIN 1 GM X 3 DAYS. PT WILL BE PICKED UP AT 7PM. LAURO VERBALIZED UNDERSTANDING.
--- NOTE | 2019-12-31 16:28 | NUR ---
PATIENT IS CURRENTLY SITTING IN BED WITH NO SIGNS OF DISTRESS AT THIS TIME. VITAL SIGNS ARE BEING TAKEN AND PATIENT IS TOLERATING WELL. SAFETY MEASURES IN PLACE AND WILL CONTINUE TO MONITOR.
--- NOTE | 2019-12-31 17:33 | NUR ---
ADMINISTERED MEDICATIONS PER ORDER AND TOLERATED WELL. PATIENT ASKED FOR CHOCOLATE PUDDING. BENADRYL AND TYLENOL HAVE NOT BEEN GIVEN BECAUSE PATIENT IS NO LONGER RECEIVING BLOOD TRANSFUSION. SAFETY MEASURES IN PLACE AND WILL CONTINUE TO MONITOR.
--- NOTE | 2019-12-31 18:50 | NUR ---
DISCHARGE PAPERWORK EXPLAINED AND GIVEN TO PATIENT. PATIENT LEFT FACILITY ACCOMPANIED BY TWO TRANSPORTERS, PATIENT LEFT WITH ALL BELONGINGS AND PAPERWORK. ID BANDS CUT. IV SITE LEFT IN LEFT FOREARM PATIENT WILL BE RECEIVING IV ANTIBIOTICS AT THE FACILITY. PATIENT IS STABILIZED, RESPIRATIONS EVEN AND UNLABORED, ON ROOM AIR.
[2020-01-22] MEDS ORDERED: LOV100I SUBQ (09:21)
[2020-01-22] MEDS ORDERED: DEXA6TAB1 PO (09:21)
[2020-01-22] MEDS ORDERED: [UNRECOGNIZED DRUG - CODE] IV (09:21)
[2020-01-22] MEDS ORDERED: VITC500 PO (09:21)
[2020-01-22] MEDS ORDERED: VITD400 PO (09:21)
[2020-01-22] MEDS ORDERED: ZINC220C28 PO (09:21)
== END 2019-12-31 18:55 | DRG 811 ==
LOC: MED 14:18 → EEVIPCON 14:18 → MTU 15:37
PROVIDERS: ADMIT General Practice; ATTEND General Practice
PROC: 30233N1 Transfusion of Nonautologous Red Blood Cells into Peripheral Vein, Percutaneous Approach (ICD-10-PCS; principal; 2019-12-28)
PROC: 0DJ08ZZ Inspection of Upper Intestinal Tract, Via Natural or Artificial Opening Endoscopic (ICD-10-PCS; 2019-12-29)
PROC: 0DJD8ZZ Inspection of Lower Intestinal Tract, Via Natural or Artificial Opening Endoscopic (ICD-10-PCS; 2019-12-30)
DX: D50.9 Iron deficiency anemia, unspecified (principal); E43 Unspecified severe protein-calorie malnutrition; Z68.42 Body mass index [BMI] 45.0-49.9, adult; K22.10 Ulcer of esophagus without bleeding; R47.01 Aphasia; N39.0 Urinary tract infection, site not specified; K21.0 Gastro-esophageal reflux disease with esophagitis; Z20.828 Contact with and (suspected) exposure to other viral communicable diseases; M19.90 Unspecified osteoarthritis, unspecified site; I10 Essential (primary) hypertension; I25.10 Atherosclerotic heart disease of native coronary artery without angina pectoris; E78.5 Hyperlipidemia, unspecified; R09.89 Other specified symptoms and signs involving the circulatory and respiratory systems; E66.01 Morbid (severe) obesity due to excess calories; K44.9 Diaphragmatic hernia without obstruction or gangrene; K57.90 Diverticulosis of intestine, part unspecified, without perforation or abscess without bleeding; Z79.82 Long term (current) use of aspirin; Z79.899 Other long term (current) drug therapy
CPT/HCPCS: 36415; 36430; 71045; 80048; 80053; 80305; 81001; 82150; 82272; 82607; 82728; 82746; 83036; 83540; 83690; 83735; 83880; 84100; 84436; 84439; 84443; 84479; 84484; 85025; 85045; 85610; 85730; 86886; 86900; 86901; 86920; 87081; 87086; 87804; 93005; 97110; 97112; 97161-GP; 99285; C1758; C9113; J0696; J1200; J2250; J2765; J2916; J3010; J7030; J7042; J7060; P9016; Q0092; Q0163; Q9967; U0003-CS

== ENCOUNTER 2020-06-29 01:33 | Emergency (ER) | payer OTHER, MEDICAID ==
[~2020-06-29] VITALS: Ht 162.6 cm; Wt 111.6 kg
[~2020-06-29 01:33] MED LIST: ACET-2619 PO; AMLO5TAB PO; AMOX-1000 PO; ASCO500T95 PO; ATOR40TA PO; FERR325E14 PO; FURO-572 PO; MAG-27 PO; MAGN400S60 PO; PANT40EC PO; POTA10TE30 PO; VITB12 IM; VITD400 PO; [UNRECOGNIZED DRUG - CODE] PO
--- NOTE | 2020-06-29 01:33 | NUR ---
PT BROUGHT IN BY AMBULANCE AT 0125. TAKEN TO BED 6.
[2020-06-29 01:37] VITALS: BP 120/67
--- NOTE | 2020-06-29 02:05 | NUR ---
PT TAKEN TO CT VIA KEKE
--- NOTE | 2020-06-29 02:15 | NUR ---
PT BACK FROM CT
--- NOTE | 2020-06-29 04:00 | NUR ---
NO CHANGE IN PATIENT CONDITION. CONTINUES TO REST IN NAD
--- NOTE | 2020-06-29 08:00 | NUR ---
PT ALERT AND AWAKE, BREATHING EVEN AND UNLABORED. NO DISTRESS NOTED. WILL CONTINUE TO MONITOR.
--- NOTE | 2020-06-29 10:26 | NUR ---
Patient transferred to [facility] for further care.
--- NOTE | 2020-06-29 12:00 | NUR ---
PT ALERT AND AWAKE, BREATHING EVEN AND UNLABORED. NO DISTRESS NOTED. WILL CONTINUE TO MONITOR.
--- NOTE | 2020-06-29 12:52 | NUR ---
Pt seated upright in bed given lunch tray at this time. Awake and alert VSS
--- NOTE | 2020-06-29 14:59 | NUR ---
PT ALERT AND AWAKE, BREATHING EVEN AND UNLABORED. NO DISTRESS NOTED. WILL CONTINUE TO MONITOR.
--- NOTE | 2020-06-29 17:59 | NUR ---
[facility] at bedside for return transport to SNF.
--- NOTE | 2020-06-29 18:00 | NUR ---
Patient discharged with v/s stable. Written and verbal after care instructions given and explained about constipation. Patient alert, oriented and verbalized understanding of instructions. Ambulatory with steady gait. All questions addressed prior to discharge. ID band removed. Patient advised to follow up with PMD. Rx of lactulose given. Patient educated on indication of medication including possible reaction and side effects. Opportunity to ask questions provided and answered. Chinyere tobias called to give pt update and informed about pt coming.
[2020-06-29 18:03] VITALS: BP 130/60
== END 2020-06-29 18:00 ==
LOC: MED 01:33
DX: K59.00 Constipation, unspecified (principal); K21.9 Gastro-esophageal reflux disease without esophagitis; I10 Essential (primary) hypertension; F03.90 Unspecified dementia, unspecified severity, without behavioral disturbance, psychotic disturbance, mood disturbance, and anxiety; I51.9 Heart disease, unspecified; Z79.899 Other long term (current) drug therapy
CPT/HCPCS: 99284

== ENCOUNTER 2020-07-03 15:05 | Emergency (ER) | payer OTHER, MEDICAID ==
[~2020-07-03] VITALS: Ht 167.6 cm; Wt 86.2 kg
--- NOTE | 2020-07-03 16:28 | NUR ---
PATIENT BIBA BLS TO ER BED B
[2020-07-03 16:33] LABS: ANION GAP 14.4 (8-16); ASPARTATE AMINOTRANSFERASE 25 U/L (15-37); CARBON DIOXIDE 23.3 mmol/L (21-32); CHLORIDE 96 mmol/L (98-107); CREATININE 0.8 mg/dL (0.6-1.3); GLUCOSE 114 mg/dL (74-106); LIPASE 76 U/L (73-393); POTASSIUM 3.7 mmol/L (3.5-5.1); SODIUM SERUM 130 mmol/L (136-145); TOTAL BILIRUBIN 0.6 mg/dL (0.0-1.0); UREA NITROGEN, BLOOD 13 mg/dL (7-18)
[2020-07-03 16:34] LABS: BASOPHILS # (AUTO) 0.1 K/uL (0.00-0.22); BASOPHILS % (AUTO) 0.6 % (0.0-2.0); EOSINOPHILS # (AUTO) 0.1 K/uL (0-0.4); EOSINOPHILS % (AUTO) 0.5 % (0.0-4.0); HEMATOCRIT 45.5 % (36-48); HEMOGLOBIN 15.1 g/dL (12.0-16.0); LYMPHOCYTES # (AUTO) 3.4 K/uL (2.5-16.5); LYMPHOCYTES % (AUTO) 31.6 % (20.5-51.1); MEAN CORPUSCULAR HEMOGLOBIN 29 pg (27-31); MEAN CORPUSCULAR HGB CONC 33 g/dL (33-37); MEAN CORPUSCULAR VOLUME 87.9 fL (80-94); MONOCYTES % (AUTO) 8.9 % (1.7-9.3); NEUTROPHILS # (AUTO) 6.3 K/uL (1.8-7.7); NEUTROPHILS % (AUTO) 58.4 % (42.2-75.2); PLATELET COUNT (AUTO) 429 K/uL (140-450); RED BLOOD CELL COUNT(AUTO) 5.17 MIL/uL (4.20-5.40); RED CELL DISTRIBUTION WIDTH 18.3 % (11.6-13.7); WHITE BLOOD COUNT (AUTO) 10.8 K/uL (4.8-10.8)
[2020-07-03 16:45] VITALS: BP 144/90
--- NOTE | 2020-07-03 17:00 | NUR ---
70/F FROM EMS TO R/O SMALL BOWEL OBSTRUCTION. PER EMS REPORTING N/V AT NURSING FACILITY. NO ACTIVE N/V AT THIS TIME. NO DISTRESS NOTED. IN HALLWAY BED FOR MSE.
[2020-07-03] MEDS ORDERED: ONDANSETRON 4 MG/2 ML VIAL IVP ONE (17:40)
[2020-07-03] MEDS ORDERED: LACTATED RINGERS 1,000 ML IV ONE (17:40)
--- NOTE | 2020-07-03 19:00 | NUR ---
REPORT TO MANDY THOMASON. ALL CARE TRANSFERRED.
--- NOTE | 2020-07-03 19:15 | NUR ---
RECEIVED REPORT FROM MANDY BARNEY FOR CONTINUATION OF CARE. PT IS SLEEPING. VISIBLE RISE AND FALL OF CHEST NOTED. NO DISTRESS NOTED. BED IS LOCKED AND IN LOWEST POSITION. SIDE RAILSX1. WILL CONTINUE TO MONITOR.
--- NOTE | 2020-07-03 20:41 | NUR ---
PT RETURN FROM CT
--- NOTE | 2020-07-03 21:30 | NUR ---
PT IS SLEEPING. VISIBLE RISE AND FALL OF CHEST NOTED. NO DISTRESS NOTED AT THIS TIME. BED IS LOCKED AND IN LOWEST POSITION. SIDE RAILSX1. WILL CONTINUE TO MONITOR.
--- NOTE | 2020-07-03 23:45 | NUR ---
PT IS RESTING WITH HOB IN LOW FOWLERS POSITION. VISIBLE RISE AND FALL OF CHEST NOTED. NO DISTRESS NOTED. BED IS LOCKED AND IN LOWEST POSITION. SIDE RAILSX1. WILL CONTINUE TO MONITOR.
--- NOTE | 2020-07-04 02:10 | NUR ---
PT IS RESTING WITH HOB IN SEMI-FOWLERS POSITION. VISIBLE RISE AND FALL OF CHEST NOTED. NO DISTRESS NOTED. BED IS LOCKED AND IN LOWEST POSITION. SIDE RAILSX1. WILL CONTINUE TO MONITOR.
--- NOTE | 2020-07-04 04:30 | NUR ---
PT UNABLE TO PROVIDE URINE SAMPLE AT THIS TIME WILL NOTIFY ERMD. PT IS RESTING WITH HOB IN LOW FOWLERS POSITION. VISIBLE RISE AND FALL OF CHEST NOTED. NO DISTRESS NOTED. BED IS LOCKED AND IN LOWEST POSITION. SIDE RAILSX1. WILL CONTINUE TO MONITOR.
--- NOTE | 2020-07-04 04:45 | NUR ---
PER ZAFAR MCKINLEY DO NOT NEED URINE COLLECTION ANYMORE.
--- NOTE | 2020-07-04 06:30 | NUR ---
PT IS ASLEEP WITH HOB IN LOW FOWLERS POSITION. VISIBLE RISE AND FALL OF CHEST NOTED. NO DISTRESS NOTED. BED IS LOCKED AND IN LOWEST POSITION. SIDE RAILSX1. WILL CONTINUE TO MONITOR.
--- NOTE | 2020-07-04 08:28 | NUR ---
PT IS SLEEPING WITH HOB IN LOW FOWLERS POSITION. VISIBLE RISE AND FALL OF CHEST NOTED. NO DISTRESS NOTED. BED IS LOCKED AND IN LOWEST POSITION. SIDE RAILSX1. WILL CONTINUE TO MONITOR.
--- NOTE | 2020-07-04 08:35 | NUR ---
GAVE REPORT TO MANDY INTERIANO FOR CONTINUATION OF CARE.
--- NOTE | 2020-07-04 08:36 | NUR ---
RECEIVED ENDORSED FROM PULP BEATER, AWAKE,ALERT, ORIENTEDX1, BREATHING SPONTANEOUSLY AT ROOM AIR, NOT IN DISTRESS NOTED. FOR DISCHARGE AND AWAITING FOR TRANSPORT TO [facility].
[2020-07-04 09:00] VITALS: BP 112/67
--- NOTE | 2020-07-04 11:07 | NUR ---
PUDDING SERVED, ABLE TO FEED HERSELF.
--- NOTE | 2020-07-04 13:07 | NUR ---
AWAKE, NOT IN DISTRESS NOTED
--- NOTE | 2020-07-04 14:43 | NUR ---
JELLO AND CRACKERS OFFERED, ABLE TO CONSUMED
--- NOTE | 2020-07-04 16:54 | NUR ---
STILL ON CHAIR, FULLY AWAKE, NOT IN DISTRESS NOTED Addendum: 07/04/20 at 1955 by Elayne Jensen RN WRONG ENTRY
--- NOTE | 2020-07-04 16:55 | NUR ---
STILL AWAITING FOR TRANSPORT FOR DOSIER OPERATOR
[2020-07-04 17:00] VITALS: BP 119/71
--- NOTE | 2020-07-04 19:25 | NUR ---
ENDORSED TO IT SECURITY ANALYST IN STABLE CONDITION, AWAITING FOR DISCHARGE
[2020-07-04 20:00] VITALS: BP 124/68
--- NOTE | 2020-07-04 20:14 | NUR ---
CALLED [place] ELIAS S/Augustin LLOYD TO INFORM HER THAT PATIENT IS RETURNING.
--- NOTE | 2020-07-04 20:27 | NUR ---
[facility] TRANSPORT FOR HOSPICE CONSULTANT
--- NOTE | 2020-07-04 20:27 | NUR ---
ONTO [facility] FOR DISCHARGE. PT CALLING OUT "I'M JUST GOING TO COME BACK TOMORROW"
--- NOTE | 2020-07-04 20:28 | NUR ---
PT TAKEN BY [facility] TRANSPORT BACK TO FACILITY
--- NOTE | 2020-07-04 20:28 | NUR ---
Patient discharged with v/s stable. Written and verbal after care instructions given and explained. Patient verbalized understanding. Ambulance Transport with to skilled nursing. All questions addressed prior to discharge. Advised to follow up with PMD.
== END 2020-07-04 20:28 ==
LOC: MED 15:05
DX: K59.00 Constipation, unspecified (principal); E87.1 Hypo-osmolality and hyponatremia; R11.2 Nausea with vomiting, unspecified; F03.90 Unspecified dementia, unspecified severity, without behavioral disturbance, psychotic disturbance, mood disturbance, and anxiety; K21.9 Gastro-esophageal reflux disease without esophagitis; I10 Essential (primary) hypertension; E78.5 Hyperlipidemia, unspecified; Z79.899 Other long term (current) drug therapy
CPT/HCPCS: 36415; 74177; 80053; 83690; 85025; 96361; 96374; 99285; J2405; Q9967